=== PATIENT | female | born 1990 | race Caucasian/White ===

== ENCOUNTER 2018-05-03 21:35 | Emergency (ER) | payer BC ==
[2018-05-03 21:53] VITALS: BP 97/62; PULSE 127; RESP 18; TEMP 98.6; O2SAT 96
== END 2018-05-03 22:22 | disposition home or self-care (01) ==
LOC: ED 21:35
DX: K40.30 Unilateral inguinal hernia, with obstruction, without gangrene, not specified as recurrent (principal)
CPT/HCPCS: 99282

== ENCOUNTER 2018-05-05 07:04 | Emergency (ER) | payer BC ==
[2018-05-05] MEDS: EPINEPHRINE HCL 0.1 MG/ML SOL IV PRN ×12 (07:09→08:30)
[2018-05-05 07:24] VITALS: O2SAT 96
[2018-05-05] MEDS ORDERED: ALTEPLASE, RECOMBINANT 50 MG PDS IV ONE ×3 (07:41→08:03)
[2018-05-05 08:02] LABS: HEMATOCRIT 23 % (35-47); MEAN CORPUSCULAR HEMOGLOBIN 28.2 pg (27.0-32.0); MEAN CORPUSCULAR HGB CONC 30.9 gm/dl (32.0-36.0); MEAN CORPUSCULAR VOLUME 91 fL (81-99)
[2018-05-05] MEDS ORDERED: EPINEPHRINE 1:1000 AMP 1 MG/ML SOL ONE ×2 (08:07→08:25)
[2018-05-05 08:10] LABS: ALBUMIN 1.9 gm/dl (3.4-5.0); BILIRUBIN,TOTAL 0.4 mg/dl (0.2-1.0); CALCIUM 8.6 mg/dl (8.5-10.1); CARBON DIOXIDE 8.2 mEq/L (21-32); CREATININE 3.33 mg/dl (0.60-1.00); TROP I 0.175 ng/ml (0.000-0.056)
[2018-05-05 08:11] LABS: POTASSIUM 6.7 mMol/L (3.5-5.1)
[2018-05-05] MEDS ORDERED: CALCIUM GLUCONATE 10% 100 MG/ML SOL IV ONE (08:17)
[2018-05-05] MEDS ORDERED: CALCIUM CHLORIDE 100 MG/ML SOL IV ONE ×2 (08:18→23:37)
[2018-05-05] MEDS ORDERED: AMIODARONE 50 MG/ML SOL IVP ONE (09:01)
[2018-05-05] MEDS ORDERED: SODIUM CHLORIDE 0.9% FLUSH 10 ML SOL IV PRN (09:01)
[2018-05-05] MEDS ORDERED: SODIUM CHLORIDE 0.9% 1000ML 1,000 ML IV SCH (09:15)
[2018-05-05 09:35] LABS: BAND NEUTROPHILS % (MANUAL) 7 %; BASOPHILS % (MANUAL) 0 % (0-3); EOSINOPHILS % (MANUAL) 1 % (0-9); LYMPHOCYTES % (MANUAL) 21 % (10-50); METAMYELOCYTES%(MANUAL) 5; MONOCYTES % (MANUAL) 6 % (0-12); MYELOCYTES%(MANUAL) 2; NEUTROPHILS % (MANUAL) 58 % (37-80); NORMAL RBCS NORMAL RBCS; NUCLEATED RED BLOOD CELLS 3 /100WBCS
[2018-05-05 10:27] VITALS: PULSE 55
[2018-05-05 10:45] VITALS: RESP 6
[2018-05-05 10:47] VITALS: BP 66/49
[2018-05-05] MEDS ORDERED: AMIODARONE 50 MG/ML SOL ONE (23:37)
[2018-05-05] MEDS ORDERED: EPINEPHRINE 1:10,000 PREFILL 0.1 MG/ML SOL ONE (23:37)
== END 2018-05-05 08:34 | disposition expired ==
LOC: ED 07:04
DX: I46.9 Cardiac arrest, cause unspecified (principal)
CPT/HCPCS: 80053; 82550; 84484; 85007; 85027; 93005; 96365; 96374; 96375; 99291; 99292; J0282; J0610; J2997; J3490